=== PATIENT | female | born 1980 | race Hispanic/Latino ===

== ENCOUNTER 2023-02-28 07:50 | Emergency (ER) | payer SELFPAY ==
[2023-02-28 09:45] LABS: SARS-CoV-2 NAA Rapid Test DETECTED (NotDetected)
== END 2023-02-28 10:32 | disposition home or self-care (01) ==
LOC: ERS 07:50
DX: U07.1 COVID-19 (principal)
CPT/HCPCS: 99284

== ENCOUNTER 2023-03-03 13:04 | Emergency (ER) | payer SELFPAY ==
[2023-03-03] MEDS ORDERED: Dexamethasone 10 MG/ML VIAL ONE (13:27)
== END 2023-03-03 17:06 | disposition home or self-care (01) ==
LOC: ERS 13:04
DX: U07.1 COVID-19 (principal); J45.909 Unspecified asthma, uncomplicated; Z79.899 Other long term (current) drug therapy
CPT/HCPCS: 71046; J1100

== ENCOUNTER 2023-03-30 17:18 | Emergency (ER) | payer SELFPAY ==
[2023-03-30] MEDS ORDERED: Acetaminophen 500 MG TAB ONE (19:10)
== END 2023-03-30 19:15 | disposition home or self-care (01) ==
LOC: ERS 17:18
DX: S83.411A Sprain of medial collateral ligament of right knee, initial encounter (principal); M25.572 Pain in left ankle and joints of left foot; Y93.02 Activity, running
CPT/HCPCS: 99283